=== PATIENT | female | born 1940 | race Caucasian/White ===

== ENCOUNTER 2017-02-09 13:26 | Emergency (ER) | payer OTHER ==
[~2017-02-09] VITALS: Ht 165.1 cm; Wt 81.7 kg
--- NOTE | ~2017-02-09 | HC ---
[facility] [place] [address] CONSULTATION Name: GERA PEÑALOZA Room #: DEP SASHA Luna#: [id number] Admission: 02/09/17 Attend Phys: Discharge: 02/09/17 Date of : 38 Report #: [id number] THIS REPORT FOR: //name// CC: Anderson Chase DATE OF SERVICE: 02/09/2017 REASON FOR CONSULTATION: Right shoulder fracture dislocation. HISTORY OF PRESENT ILLNESS: The patient is a 76-year-old female who tripped and fell today falling directly onto her right shoulder. She noted immediate pain and numbness to her fingers. She reports all of her fingers are tingly. She denied loss of consciousness, denied any other prior injury to her right shoulder. She denies any difficulty moving her hand. She denies any other extremity complaints. REVIEW OF SYSTEMS: NEUROLOGIC: Reports diffuse tingling in her right hand and history of all extremity neuropathy/idiopathic. MUSCULOSKELETAL: See HPI, denies any other extremity complaints. PAST MEDICAL HISTORY: Significant for lupus anticoagulant requiring Coumadin, hypercholesterolemia, hypertension, sleep apnea, hypothyroidism and neuropathy. PAST SURGICAL HISTORY: Sinus surgery, hysterectomy. She has had a history of TIAs without residual upper extremity problems. She has had multiple right PEs to her lupus anticoagulant disorder, cataract surgery, colonoscopy. REPORTED HOME MEDICATIONS: Include hydrocodone, ibuprofen, warfarin, enoxaparin sodium, sertraline, triamterene, cetirizine, ezetimibe, levothyroxine, gabapentin, alprazolam, mometasone, trazodone, ubidecarenone, multivitamin and diphenhydramine. ALLERGIES: SHE REPORTS PENICILLIN AND SULFA, ALSO INCLUDED IN HER MEDICAL RECORD INCLUDE SUMATRIPTAN AND MOXIFLOXACIN AND ADHESIVE TAPE. SOCIAL HISTORY: She is right hand dominant. Does not use any ambulatory devices for walking. She walks independently. She lives at home with her who is on hospice and apparently only has a few days to live. She denies smoking or drinking alcohol. PHYSICAL EXAMINATION: GENERAL: The patient is alert and oriented. She interacts appropriately. She has a female friend at her bedside ____ this is a neighbor. VITAL SIGNS: Most recent vital signs show temperature of 36.8, heart rate is [facility] [address] [place] [address] CONSULTATION Name: GERA PEÑALOZA Room #: [facility] Cheryl#: [id number] Admission: 02/09/17 Attend Phys: Discharge: 02/09/17 Date of : 38 Report #: [id number], respiratory rate 16, blood pressure 133/76 and pulse oximetry is 94% on room air. EXTREMITIES: Examination of her bilateral sternum and clavicles, there is no tenderness to palpation. Left upper extremity skin is clean, dry and intact. She has brisk capillary refill. She moves her left shoulder, elbow, forearm and wrist without pain. There is no tenderness to palpation throughout. Bilateral lower extremity exam, she moves her lower extremities without difficulty. Skin is clean, dry and intact. She wiggles her toes. There is no pain with range of motion of her bilateral lower extremities. Right upper extremity exam, her shoulders in a very slightly abducted position. She has significant tenderness to palpation at her proximal humerus. There is no tenderness at her elbow, forearm, wrist or hand. Her sensation is diffusely decreased. She has a 2+ radial pulse and brisk capillary refill. EPL, finger extension, wrist extension are 5/5. Finger abduction and adduction are 5/5. APB function is 5/5. RADIOGRAPHS: AP, scapular Y and an axillary lateral view show an inferior proximal humerus fracture with inferior medial displacement due to significant comminution of the greater and probably lesser tuberosities. Post-reduction radiographs included an AP and axillary lateral showed a tuberosity fracture, but a reduced glenohumeral joint. IMPRESSION AND PLAN: Right inferior proximal humerus fracture dislocation. I discussed the diagnosis as well as treatment options and recommended closed reduction. Please see separate note for this. The closed reduction was successful. She was placed into a shoulder immobilizer. Her shoulder was actually quite stable with very gentle range of motion prior to placing her into the shoulder immobilizer. She will undergo a CT scan and then if she is able to be discharged from the Emergency Room, she will be discharged from the Emergency Room to follow up as an outpatient with my partners either Dr. Pedrito Mendez or Dr. Herminio Guthrie at [facility] orthopedic surgeons. Questions were encouraged and answered to the best of my ability. By: [id number] Ana Rosales MD /nt
--- NOTE | ~2017-02-09 | O ---
[facility] [place] [address] OPERATIVE REPORT Name: GERA PEÑALOZA Room #: DEP Cheryl#: [id number] Admission: 02/09/17 Attend Phys: Discharge: 02/09/17 Date of : 38 Report #: [id number] THIS REPORT FOR: //name// CC: Anderson Chase DATE OF SERVICE: 02/09/2017 PREOPERATIVE DIAGNOSIS: Right shoulder fracture dislocation. POSTOPERATIVE DIAGNOSIS: Right shoulder fracture dislocation. PROCEDURE PERFORMED: Closed reduction of right glenohumeral joint fracture dislocation. SURGEON: Ana Rosales MD ANESTHESIA: Sedation performed by Dr. Chase in the emergency department. COMPLICATIONS: None. CONDITION: Stable. DISPOSITION: She was stable in the emergency department. INDICATIONS: The patient is a 76-year-old female with a right proximal fracture dislocation. She elects for closed reduction. We discussed the diagnosis as well as treatment options. The risks, benefits, alternatives, complications were discussed including but not limited to inability to reduce the dislocation, extension of a fracture, damage to neurovascular structures. Informed consent was obtained and after adequate sedation was achieved, a gentle closed reduction maneuver was performed and included adducting the arm placing traction as well as laterally directed force from the medial aspect of the humerus. The gentle rotation was performed, which resulted in a successful reduction. Post-reduction x-rays included an AP and then an axillary lateral showed a reduced glenohumeral joint with greater and probable lesser tuberosity fractures. The patient's shoulder was relatively stable with range of motion. After the reduction, she was placed in a shoulder immobilizer. Her finger and wrist and thumb extension was intact, 5/5 abduction and adduction 5/5. She is able to make a full fist and she reported sensation was slightly improved, but still reported some tingling sensation. She had brisk capillary refill and 2+ radial pulse. She tolerated the procedure well. By: [id number] Ana Rosales MD /nt
[~2017-02-09 13:26] MED LIST: ASPIRIN EC81 M1 PO; ATENOLOL 50 MG50 M1 PO; BENADRYL25 MG PO; CLIMARA IJ; CO Q-10100 MG PO; COLACE 100 MG100 MG PO; COLACE100 MG; COUMADIN 4 MG TA4 M1 PO; COUMADIN7.5 MG PO; DARVOCET-N 1001 EAC1 PO; DESYREL50 MG PO; ENOXAPARIN100 MG/1 M SUBQ; FIORICET; FIORICET PO; IBUPROFEN 800800 M1 PO; JANTOVEN6 MG PO; KEFLEX500 MG PO; KENALOG63 GM NS; LOVENOX SC; MAXZIDE 75-501 EACH PO; MULTIVITAMINS PO; NASONEX17 GM NS; NEURONTIN 300300 M1 PO; NORCO 5-325 TA1 EACH PO; SYNTHROID; SYNTHROID75 MCG PO; TRIAMTERENE-HC1 EAC1 PO; URECHOLINE 25 M25 M1 PO; XANAX XR1 MG PO; ZETIA10 MG PO; ZOLOFT100 MG PO; ZYRTEC10 M2; ZYRTEC10 M2 PO
[2017-02-09] MEDS ORDERED: NEURONTIN600 MG PO (17:00)
[2017-02-09] MEDS ORDERED: COUMADIN 5 MG TA5 M1 PO (17:01)
[2017-02-09] MEDS ORDERED: OXYCODONE HCL 55 MG PO (17:35)
[2017-02-09 18:49] VITALS: BP 178/82
== END 2017-02-09 18:49 | disposition home or self-care (01) ==
LOC: ER 13:26
DX: S42.251A Displaced fracture of greater tuberosity of right humerus, initial encounter for closed fracture (principal); I10 Essential (primary) hypertension; E78.00 Pure hypercholesterolemia, unspecified; F41.9 Anxiety disorder, unspecified; F32.9 Major depressive disorder, single episode, unspecified; E03.9 Hypothyroidism, unspecified; F10.99 Alcohol use, unspecified with unspecified alcohol-induced disorder; Z90.710 Acquired absence of both cervix and uterus; Z86.73 Personal history of transient ischemic attack (TIA), and cerebral infarction without residual deficits; Z98.890 Other specified postprocedural states; Z85.820 Personal history of malignant melanoma of skin; Z88.0 Allergy status to penicillin; Z88.1 Allergy status to other antibiotic agents; Z91.018 Allergy to other foods; Z91.048 Other nonmedicinal substance allergy status; Z88.8 Allergy status to other drugs, medicaments and biological substances

== ENCOUNTER → 2017-05-10 | Outpatient (CLI) | payer OTHER ==
[~2017-05-10] MED LIST changes: +COUMADIN 5 MG TA5 M1 PO; +NEURONTIN600 MG PO; +OXYCODONE HCL 55 MG PO
== END ==
LOC: RAD 11:12
DX: Z12.31 Encounter for screening mammogram for malignant neoplasm of breast (principal)